=== PATIENT | female | born 1975 | race African-American/Black ===

== ENCOUNTER 2017-05-26 07:49 | Emergency (ER) | payer BC ==
[2017-05-26 08:50] LABS: #Eosinphils 0.2 thou/uL (0.0-0.7); #Lymphocytes 2.1 thou/uL (1.20-3.40); #Monocytes 0.6 thou/uL (0.11-0.59); #Neutrophils 3.4 thou/uL (1.40-6.50); %Basophils 0.7 % (0.0-1.0); %Eosinophils 2.7 % (0.0-10.0); %Lymphocytes 33.3 % (21.0-51.0); %Monocytes 9.4 % (0.0-10.0); Hematocrit 41.2 % (36.0-47.0); Mean Platelet Volume 7.6 fL (7.4-10.4); Red Blood Cell (RBC) Count 4.29 mill/uL (4.20-5.40); White Blood Cell (WBC) Count 6.3 thou/uL (4.8-10.8)
[2017-05-26 09:08] LABS: ALT (SGPT) 10 U/L (8-55); AST (SGOT) 13 U/L (5-34); Alkaline Phosphatase 70 U/L (40-150); Anion Gap 11 mmol/L (10-20); BUN (Urea Nitrogen) 6 mg/dL (7.0-18.7); Bilirubin, Total 0.4 mg/dL (0.2-1.2); Calc. Creatinine Clearance 0 mL/min (70-130); Calcium 9.3 mg/dL (7.8-10.44); Carbon Dioxide 27 mmol/L (22-29); Chloride 104 mmol/L (98-107); Estimated GFR-MDRD Greater than 90; Globulin 3.7 g/dL (2.4-3.5); Protein, Total 7.5 g/dL (6.0-8.3)
[2017-05-26 09:11] LABS: Troponin I Less than 0.010 ng/mL (< 0.028)
[2017-05-26] MEDS ORDERED: Metoclopramide HCl 10 MG/2 ML VIAL ONE (10:04)
[2017-05-26] MEDS ORDERED: Meclizine HCl 25 MG TAB ONE (10:04)
[2017-05-26 10:35] LABS: Bilirubin Negative (Negative); Blood, Urine Negative (Negative); Glucose, Urine (Dipstick) Negative (Negative); Ketone, Urine Negative (Negative); Nitrite Negative (Negative); Protein, Urine (Dipstick) Negative (Neg-Trace); Urobilinogen 0.2 mg/dL (0.2-1.0)
[2017-05-26 10:37] LABS: Amphetamine Not Detected (NotDetected); Hyaline Casts/LPF 0-3 HYALINE CAST LPF (0-3 Hyaline); Methadone Not Detected (NotDetected); Methamphetamine Not Detected (NotDetected)
[2017-05-26 10:50] LABS: Bacteria/HPF 1+ HPF (None Seen); RBC/HPF 0-3 HPF (0-3)
--- NOTE | 2017-05-26 13:57 | CT ---
CT BRAIN: HISTORY: Dizziness. FINDINGS: Noncontrast-enhanced CT images of the brain were obtained on 05/26/17. Noncontrast-enhanced CT images of the brain demonstrate the brain to be unremarkable. No evidence o f intracranial masses, hemorrhages, strokes, or contusions seen. IMPRESSION: Normal CT brain. POS: [facility]
== END 2017-05-26 11:54 | disposition home or self-care (01) ==
LOC: ERS 07:49
DX: R42 Dizziness and giddiness (principal)
CPT/HCPCS: 36415; 70450; 80053; 80306; 81003; 81015; 81025; 82553; 84484; 85025; 93005; 96361; 96365; J2765

== ENCOUNTER 2022-11-09 11:56 | Emergency (ER) | payer MEDICAID, OTHER, SELFPAY | END 2022-11-09 12:40 | disposition home or self-care (01) | LOC: ERS 11:56 | DX: M25.511 Pain in right shoulder (principal) | CPT/HCPCS: 93005 ==